=== PATIENT | female | born 1980 | race Caucasian/White ===

== ENCOUNTER 2021-09-03 11:54 | Emergency (ER) | payer SELFPAY ==
[~2021-09-03] VITALS: Ht 165.1 cm; Wt 70.3 kg
[2021-09-03 12:10] VITALS: BP 129/84
--- NOTE | 2021-09-03 12:16 | NUR ---
PT AMBULATED TO BED 3.
[2021-09-03] MEDS ORDERED: predniSONE 20 MG TAB PO ONE (12:45)
[2021-09-03] MEDS ORDERED: diphenhydrAMINE 50 MG CAP PO ONE (12:45)
[2021-09-03] MEDS ORDERED: PRED20TA5 PO (13:16)
[2021-09-03] MEDS ORDERED: BEN50 PO (13:16)
[2021-09-03 14:13] VITALS: BP 135/97
== END 2021-09-03 14:05 | disposition home or self-care (01) ==
LOC: MED 11:54
DX: T63.441A Toxic effect of venom of bees, accidental (unintentional), initial encounter (principal); F41.9 Anxiety disorder, unspecified; F31.9 Bipolar disorder, unspecified; Z79.899 Other long term (current) drug therapy; Y92.89 Other specified places as the place of occurrence of the external cause
CPT/HCPCS: 99283; J7512; Q0163